=== PATIENT | female | born 1970 | race Caucasian/White ===

== ENCOUNTER 2021-09-08 18:29 | Emergency (ER) | payer OTHER ==
[~2021-09-08] VITALS: Ht 154.9 cm; Wt 59.0 kg
[~2021-09-08 18:29] MED LIST: BACTRIM DS TAB1 EACH PO; FLEXERIL PO; KEFLEX500 MG PO; OXYBUTYNIN 5 MG5 M2 PO; TEGRETOL200 MG PO
[2021-09-08 18:38] VITALS: BP 176/99
== END 2021-09-08 22:00 | disposition home or self-care (01) ==
LOC: ER 18:29
PROVIDERS: Student in an Organized Health Care Education/Training Program
DX: M54.50 Low back pain, unspecified (principal); Z20.822 Contact with and (suspected) exposure to COVID-19; R05.9 Cough, unspecified; J44.9 Chronic obstructive pulmonary disease, unspecified; I50.9 Heart failure, unspecified; M19.90 Unspecified osteoarthritis, unspecified site; Z79.899 Other long term (current) drug therapy; Z88.5 Allergy status to narcotic agent; Z88.0 Allergy status to penicillin